=== PATIENT | male | born 1960 | race African-American/Black ===

== ENCOUNTER 2023-10-06 20:57 | Emergency (ER) | payer BC ==
[2023-10-06 21:06] VITALS: BP 128/76; PULSE 82; RESP 18; TEMP 99; BMI 34.7
[2023-10-06] MEDS ORDERED: ACETAMINOPHEN 500 MG TABLET (FP) PO ONE (21:39)
[2023-10-06] MEDS ORDERED: ACETAMINOPHEN 500 MG TABLET (FP) ONE (21:43)
== END 2023-10-06 22:49 | disposition home or self-care (01) ==
LOC: FER 20:57
DX: R05.9 Cough, unspecified (principal); R09.81 Nasal congestion; R53.83 Other fatigue; M79.10 Myalgia, unspecified site; J06.9 Acute upper respiratory infection, unspecified; Z20.822 Contact with and (suspected) exposure to COVID-19
CPT/HCPCS: 0241U-QW; 71046-TC-FY; 99284-25